=== PATIENT | female | born 1990 | race Caucasian/White ===

== ENCOUNTER 2023-10-21 03:01 | Emergency (ER) | payer BC, OTHER ==
[~2023-10-21] VITALS: Ht 160 cm; Wt 89.0 kg
[2023-10-21 03:28] VITALS: BP 113/66; PULSE 119; RESP 18; O2SAT 97
[2023-10-21 05:54] LABS: Urine Bacteria MANY /hpf (None Seen); Urine Blood Negative /uL (Negative); Urine Clarity HAZY (Clear); Urine Color Yellow (Yellow); Urine Mucus FEW (None Seen); Urine Protein, UAD 1+ (Negative); Urine Specific Gravity 1.036 (1.001-1.035); Urine Urobilinogen Normal (Negative); Urine WBC 7 /hpf (0 - 5)
[2023-10-21] MEDS ORDERED: ACETAMINOPHEN 325 MG TAB PO ONE (06:00)
[2023-10-21] MEDS ORDERED: diphenhdrAMINE HCL 50 MG/1 ML VL IV ONE (06:00)
[2023-10-21] MEDS ORDERED: METOCLOPRAMIDE HCL 10 MG TAB PO ONE (06:00)
[2023-10-21] MEDS ORDERED: SODIUM CHLORIDE 0.9% 1,000 ML IVB ONE (06:00)
[2023-10-21] MEDS ORDERED: FAMOTIDINE (10MG/ML) 2ML VL IV ONE (06:00)
== END 2023-10-21 07:38 | disposition left against medical advice (07) ==
LOC: ER 03:01
DX: O26.892 Other specified pregnancy related conditions, second trimester (principal); O21.9 Vomiting of pregnancy, unspecified; R10.9 Unspecified abdominal pain; Z3A.17 17 weeks gestation of pregnancy
CPT/HCPCS: 81001